=== PATIENT | male | born 1935 | race Caucasian/White ===

== ENCOUNTER 2020-10-01 11:51 | Emergency (ER) | payer OTHER ==
[~2020-10-01] VITALS: Ht 180.3 cm; Wt 84.8 kg
[2020-10-01] MEDS ORDERED: CRESTOR10 MG (12:11)
[2020-10-01] MEDS ORDERED: [UNRECOGNIZED DRUG - OTHER] (12:12)
[2020-10-01] MEDS ORDERED: [UNRECOGNIZED DRUG - OTHER] (12:12)
[2020-10-01] MEDS ORDERED: [UNRECOGNIZED DRUG - OTHER] (12:13)
== END 2020-10-01 16:55 | disposition left against medical advice (07) ==
LOC: ER 11:51
DX: U07.1 COVID-19 (principal)

== ENCOUNTER 2022-10-08 19:26 | Emergency (ER) | payer OTHER ==
[~2022-10-08] VITALS: Ht 180.3 cm; Wt 86.2 kg
[~2022-10-08 19:26] MED LIST: CRESTOR10 MG; [UNRECOGNIZED DRUG - OTHER]; [UNRECOGNIZED DRUG - OTHER]; [UNRECOGNIZED DRUG - OTHER]
[2022-10-08] MEDS ORDERED: EUTHYROX88 MCG (19:52)
== END 2022-10-08 22:45 | disposition home or self-care (01) ==
LOC: ER 19:26
DX: U07.1 COVID-19 (principal); E03.9 Hypothyroidism, unspecified; I10 Essential (primary) hypertension; E78.00 Pure hypercholesterolemia, unspecified